=== PATIENT | female | born 1990 | race African-American/Black ===

== ENCOUNTER 2018-07-10 12:06 | Observation (INO) | payer MEDICAID ==
[2018-07-10] MEDS ORDERED: PREN-176 PO (14:40)
== END 2018-07-10 15:11 | disposition home or self-care (01) ==
LOC: ER 12:28 → 8 EST LDRP 12:30
PROVIDERS: ADMIT Obstetrics & Gynecology; ATTEND Obstetrics & Gynecology
DX: O21.2 Late vomiting of pregnancy (principal); O62.9 Abnormality of forces of labor, unspecified; Z3A.33 33 weeks gestation of pregnancy
CPT/HCPCS: 99281; G0378